=== PATIENT | male | born 1965 | race Two or more races ===

== ENCOUNTER 2021-03-21 09:52 | Emergency (ER) | payer OTHER ==
[~2021-03-21] VITALS: Ht 182.9 cm; Wt 120.2 kg
--- NOTE | 2021-03-21 10:05 | NUR ---
ALESSANDRO RA[address] FROM [facility] FOR LETHARGY TODAY. COVID +. AAOX2 BASELINE PER EMS. PT AAOX0 AT THIS TIME, BUT ABLE TO COMMUNICATE VERBALLY. ON ROOM AIR, BREATHING EVEN AND UNLABORED. ON MONITOR. WILL CONTINUE TO MONITOR.
--- NOTE | 2021-03-21 10:14 | NUR ---
CALLED [facility] SPOKE WITH TIMURLY [phone] PT HAS HX OF: CVA HTN DM II ACUTE ENCEPHLAPATHY FROM STROKE FULL CODE NO VACCINE TESTED POSITIVE LAST WEEK AND YESTERDAY TESTED NEGATIVE. LAST KNOWN WELL YESTERDAY. [id number].
--- NOTE | 2021-03-21 10:22 | NUR ---
CODE STROKE ACTIVATED.
--- NOTE | 2021-03-21 10:24 | NUR ---
TAKEN TO CT
--- NOTE | 2021-03-21 10:25 | NUR ---
BG 119
[2021-03-21] MEDS ORDERED: IOHEXOL-350 100 ML VIAL IV ONE (10:30)
[2021-03-21] MEDS ORDERED: IV NS 0.9% 1,000 ML BAG IV ONE ×2 (10:30→14:30)
[2021-03-21] MEDS ORDERED: IV NS 0.9% 250 ML IV ONE ×2 (10:31)
[2021-03-21] MEDS ORDERED: CT SWABBABLE VALVE TRANS SET 1 EA INFUS.SET MC ONE (10:31)
--- NOTE | 2021-03-21 10:48 | NUR ---
THE PATIENT IS BACK FROM CT VIA [facility]
[2021-03-21 11:07] LABS: BASOPHILS % (AUTO) 0.3 % (0.0-2.0); EOSINOPHILS % (AUTO) 0.2 % (0.0-6.0); HEMATOCRIT 33 % (39-51); HEMOGLOBIN 11.1 g/dL (13.5-17.5); LYMPHOCYTES # (AUTO) 0.7 K/uL (0.8-4.8); LYMPHOCYTES % (AUTO) 13.7 % (20.0-44.0); MEAN CORPUSCULAR HGB CONC 34 g/dl (31.0-36.0); MEAN CORPUSCULAR VOLUME 92 fL (80-96); MONOCYTES # (AUTO) 0.4 K/uL (0.1-1.30); MONOCYTES % (AUTO) 8.4 % (2.0-12.0); NEUTROPHILS # (AUTO) 3.9 K/uL (1.8-8.9); NEUTROPHILS % (AUTO) 77.4 % (43.0-81.0); PLATELET COUNT (AUTO) 251 K/uL (150-450); RED BLOOD CELL COUNT(AUTO) 3.57 MIL/uL (4.5-6.0); WHITE BLOOD COUNT (AUTO) 5.1 K/uL (4.3-11.0)
--- NOTE | 2021-03-21 11:11 | NUR ---
CALLED [facility] [phone] PA WILL FAX CLINICALS
--- NOTE | 2021-03-21 11:20 | NUR ---
FAXED CLINICALS TO [facility] [phone] PA.
--- NOTE | 2021-03-21 11:21 | NUR ---
COVID SWAB DONE AND SENT TO LAB
--- NOTE | 2021-03-21 11:24 | NUR ---
TELE NEURO DR. BAIRD SPEAKING WITH DR. CAMPOS
[2021-03-21 11:25] LABS: ALANINE AMINOTRANSFERASE 57 U/L (12-78); ALBUMIN 2.2 g/dL (3.4-5.0); ALKALINE PHOSPHATASE 93 U/L (46-116); ASPARTATE AMINOTRANSFERASE 63 U/L (15-37); BILIRUBIN,DIRECT 0.2 mg/dL (0.0-0.2); BILIRUBIN,TOTAL 0.5 mg/dL (0.2-1.0); CALCIUM, SERUM 9.1 mg/dL (8.5-10.1); CARBON DIOXIDE 21 mmol/L (21-32); CHLORIDE 114 mmol/L (98-107); CREATININE 2.5 mg/dL (0.6-1.3); GLUCOSE 118 mg/dL (74-106); POTASSIUM 3.5 mmol/L (3.5-5.1); SODIUM SERUM 149 mmol/L (136-145); TOTAL PROTEIN, SERUM 6.4 g/dL (6.4-8.2); UREA NITROGEN, BLOOD 54 mg/dL (7-18)
[2021-03-21] MEDS ORDERED: ASPIRIN 300 MG/SUPP.RECT RC ONE ×2 (11:30→11:41)
--- NOTE | 2021-03-21 11:30 | NUR ---
CALLED [facility] FOR TRANSPORT NO CCT NO ALS AVAILABLE.
--- NOTE | 2021-03-21 11:41 | NUR ---
CALLED [facility] NO CCT AVAILABLE ALS AVAILABLE AFTER 8PM
--- NOTE | 2021-03-21 11:50 | NUR ---
PER PA, PATIENT GOT ACCEPTED AT [facility] UNDER DR TROY RIVERA. TRANSPORT WILL BE ARRANGED AND WILL CALL US FOR INFORMATION
--- NOTE | 2021-03-21 12:00 | NUR ---
SPOKE WITH ALEXIS LOZANO, CONTACTING DR VARGAS (IR) TO GIVE US A CALL
--- NOTE | 2021-03-21 12:16 | NUR ---
PT ACCEPTED TO [facility] BY DR. VARGAS.
--- NOTE | 2021-03-21 12:21 | NUR ---
CALLED [facility] [phone] ART CCT NURSE WILL CALL US BACK WITH YAJAIRA.
--- NOTE | 2021-03-21 12:54 | NUR ---
[facility] OF [facility] 15-20 MINS PER ALEXIS @ [phone]
--- NOTE | 2021-03-21 13:07 | NUR ---
ART CALLED FROM [facility] OF [facility] NO BEDS AVAILABLE SO WILL CANCEL TRANPORT.
--- NOTE | 2021-03-21 13:11 | NUR ---
CALLED [facility] [phone] TO REACTIVATE. ELLIOT
[2021-03-21 13:22] VITALS: BP 142/69
--- NOTE | 2021-03-21 13:37 | NUR ---
GOING TO [facility] SHYANN CROWMERLINE RIVERA PLEASE CALL [phone] FOR REPORT.
--- NOTE | 2021-03-21 13:44 | NUR ---
[facility] SPOKE WITH EVETTE [phone] WILL FAX OVER MEDS AND H&P TO US.
--- NOTE | 2021-03-21 13:51 | NUR ---
UNABLE TO GIVE REPORT TO [facility] ER. PLACED ON HOLD FOR LONG TIME. WILL TRY AGAIN.
--- NOTE | 2021-03-21 14:16 | NUR ---
[facility] TRANSPORT AT BEDSIDE, PERTINENT PAPERWORK GIVEN.
--- NOTE | 2021-03-21 14:27 | NUR ---
PA YEUNG (SISTER) [phone]
--- NOTE | 2021-03-21 14:30 | NUR ---
REPORT GIVEN TO [facility] TRANSPORT NURSE ZAHIDA LOZANO
--- NOTE | 2021-03-21 14:38 | NUR ---
THE PATIENT IS TRANSFERED TO [facility] ER VIA [facility] AND IN STABLE CONDITION. SISTER AWARE
== END 2021-03-21 14:40 | disposition short-term general hospital (02) ==
LOC: ER 09:58
DX: I63.511 Cerebral infarction due to unspecified occlusion or stenosis of right middle cerebral artery (principal); R53.1 Weakness; R41.82 Altered mental status, unspecified; R29.718 NIHSS score 18; R94.31 Abnormal electrocardiogram [ECG] [EKG]; E11.9 Type 2 diabetes mellitus without complications; I10 Essential (primary) hypertension; Z20.822 Contact with and (suspected) exposure to COVID-19; I69.351 Hemiplegia and hemiparesis following cerebral infarction affecting right dominant side
CPT/HCPCS: 36415; 70450; 70496; 70498; 71045; 80048; 80076; 82962; 83605; 84484; 85025; 85730; 87040 ×2; 87426; 93005; 96360; 96361; 99291; C9803; J7030 ×2; J7050 ×2; Q9967